=== PATIENT | male | born 1980 | race Caucasian/White ===

== ENCOUNTER 2018-09-02 09:43 | Day surgery (SDC) | payer BC ==
[2018-09-02] VITALS (17 sets, daily range): BP systolic 107–137; BP diastolic 63–87; PULSE 62–74; RESP 12–21; Ht 175.3 cm; Wt 107.8 kg
[~2018-09-02] VITALS: Ht 175.3 cm; Wt 107.8 kg
[2018-09-02] MEDS ORDERED: ASPI81TA52 PO (11:06)
[2018-09-02] MEDS ORDERED: CLOP75TA27 PO (11:06)
[2018-09-02] MEDS ORDERED: METO-407 PO (11:07)
[2018-09-02] MEDS ORDERED: METO-429 PO (11:07)
[2018-09-02] MEDS ORDERED: ATOR40TA68 PO (11:07)
[2018-09-02] MEDS ORDERED: SOD CHLORIDE 0.9% 1,000 ML IV SCH ×2 (12:30→15:00)
[2018-09-02] MEDS ORDERED: IODIXANOL LOCM 100 ML BTL ONE (13:52)
[2018-09-02] MEDS ORDERED: LIDOCAINE 1% (MDV) 20 ML INJ ONE (13:52)
[2018-09-02] MEDS ORDERED: HEPARIN 1000 UNITS/ML 10 ML INJ ONE (13:58)
[2018-09-02] MEDS ORDERED: MIDAZOLAM 1 MG/ML 2 ML INJ ONE (13:59)
[2018-09-02] MEDS ORDERED: NITROGLYCERIN (IC) 100 MCG/ML INJ ONE (13:59)
[2018-09-02] MEDS ORDERED: FENTAnyl 50 MCG/ML VIAL ONE (13:59)
[2018-09-02] MEDS ORDERED: VERAPAMIL 5 MG INJ ONE (14:18)
[2018-09-02] MEDS ORDERED: ACETAMINOPHEN 325 MG TAB PO PRN (15:00)
--- NOTE | 2018-09-02 15:07 | OPR ---
Date/Time of Note Date/Time of Note DATE: 09/02/18 TIME: 15:02 Operative Report Procedure Date: Sep 02, 2018 Preoperative Diagnosis Chest pain Postoperative Diagnosis Mild coronary artery disease Operation/Procedure Performed Left heart catheterization Right and left coronary angiogram Interpretation and supervision of right and left coronary angiogram Left ventricular pressure measurements Right radial artery approach Conscious sedation Surgeon see signature line [employer] Director [facility] staff Anesthesia Type: MAC Estimated Blood Loss: minimal Transfusion none Specimen None Grafts/Implants none Complications none Pt Condition Post Procedure: stable Procedure Description Findings Hemodynamics LV pressure 142/1 with EDP of 18 Aortic pressure 120/81 Coronary findings Left main is a large caliber vessel with no significant disease LAD is a medium caliber vessel with proximal patent stent with no significant in-stent restenosis, vessel with mild luminal irregularities Circumflex is a medium caliber vessel, OM 1 with ostial 30% stenosis, OM 2 with patent stent RCA is a medium caliber vessel and likely codominant with mild luminal irregularities Description of procedure Patient brought to the [facility] after informed consent. Patient prepped and draped as per protocol. Right radial artery access was obtained and a 5/6 [place] sheath was placed in the right radial artery. A 5 [place] Homer catheter was used to engage the left main and angiogram was performed. We then entered the left ventricle and pressure measurements were obtained as well as pullback. We were unable to engage the RCA with his catheter. We switched out for a David right 5 [place] catheter and angiogram of the RCA was performed. Catheters and wires removed. There was no immediate complications Conclusion Mild nonobstructive coronary artery disease with patent stents in the LAD and obtuse marginal Blu Shultz DO Sep 02, 2018 15:07
--- NOTE | 2018-09-02 15:08 | PDOCDIS ---
Discharge Instructions CONDITION [id number] Patient Condition: [id number] Good HOME CARE INSTRUCTIONS: [id number] Diet Instructions: [id number] Low Fat /Cholesterol ACTIVITY: [id number] Activity Restrictions: [id number] Slowly Increase Activity Avoid heavy lifting (With right arm not more than 5 pounds for 2 days) [address] not Drive (for 1 day) Blu Shultz DO Sep 02, 2018 15:08
--- NOTE | 2018-09-02 19:01 | RADRPT ---
Vent Rate: 73 bpm RR Interval: 0 msec [place] Interval: 198 msec QRS Duration: 96 msec QT Interval: 372 msec QTC Interval: 409 msec P-R-T [place]: 58 - -17 - 47 degrees Normal sinus rhythm Normal ECG Electronically Signed By: Vladimir Aranda
== END 2018-09-02 18:26 | disposition home or self-care (01) ==
LOC: SDS 09:43
PROVIDERS: ATTEND Internal Medicine Cardiovascular Disease
DX: I25.10 Atherosclerotic heart disease of native coronary artery without angina pectoris (principal); I10 Essential (primary) hypertension; E78.5 Hyperlipidemia, unspecified; I25.2 Old myocardial infarction
CPT/HCPCS: 80048; 85025; 85610; 85730; 93005; 93458; C1887; J1644; J2250; J3010; Q9967; Z7610